=== PATIENT | male | born 1960 | race Asian ===

== ENCOUNTER 2017-03-12 12:37 | Day surgery (SDC) | payer OTHER ==
[~2017-03-12 12:37] MED LIST: POVIDONE-IODINE 5% OPHTH SOLN 600 GTTS/BOT SOLN.DROP ONE
[2017-03-12] MEDS ORDERED: SODIUM CHLORIDE 0.9% 500 ML ONE (12:58)
[2017-03-12] MEDS ORDERED: IV START KIT ONE (12:58)
[2017-03-12] MEDS ORDERED: NEO/POLYMYX B SULF/DEXAMETH OP OINT 14 APPLIC/3.5 G TUBE OS ONE (13:00)
[2017-03-12] MEDS ORDERED: CHONDR SULF 4%/HYALURONATE 3% 0.5 ML SYRINGE IO ONE (13:00)
[2017-03-12] MEDS ORDERED: D5 1/2NS 500 ML IV SCH (13:00)
[2017-03-12] MEDS ORDERED: PHENYLEPHRINE HCL 10% 100 GTTS/5 ML BOT SOLN.DROP OS PRN (13:00)
[2017-03-12] MEDS ORDERED: EPINEPHRINE 0.5 MG in BALANCED SALT IRRIG SOLN NO.2 500 ML IO ONE (13:00)
[2017-03-12] MEDS ORDERED: PROPARACAINE HCL 0.5% 300 GTTS/BOT SOLN.DROP OS ONE (13:00)
[2017-03-12] MEDS ORDERED: LIDOCAINE 4% (PRES FREE) 1 ML, BALANCED SALT IRRIG SOLN COMB2 3 ML, EPINEPHRINE 1.25 MG IO ONE ×3 (13:00)
[2017-03-12] MEDS: FLURBIPROFEN SODIUM 0.03% 50 GTTS/2.5 ML BOT SOLN.DROP OS SCH ×2 (13:39→13:46)
[2017-03-12] MEDS: CYCLOPENTOLATE HCL 1% 40 GTTS/2 ML BOT SOLN.DROP OS SCH ×2 (13:39→13:45)
[2017-03-12] MEDS: PHENYLEPHRINE 2.5% OPHTH 40 GTTS/2 ML BOT SOLN.DROP OS SCH ×2 (13:40→13:45)
[2017-03-12] MEDS ORDERED: MIDAZOLAM HCL 1 MG/ML 2ML VIAL ONE (13:51)
--- NOTE | 2017-03-13 08:55 | OP ---
BRITTNEY RODRIGUEZ : 1960 [id number] DATE OF SURGERY: March 12, 2017 SURGEON: Miguelito Gutierrez M.D. PREOPERATIVE DIAGNOSIS: Cataract OS. POSTOPERATIVE DIAGNOSIS: Pseudophakia OS. PROCEDURE: CATARACT EXTRACTION AND INTRAOCULAR LENS IMPLANTATION OS. COMPLICATIONS: None. ANESTHESIA: Monitored anesthesia care. DESCRIPTION OF OPERATION: After proper informed consent and brief history and physical were performed, the patient was brought to the operating room and placed in the supine position on the operating room table. The patient was prepped and draped in the usual sterile fashion for cataract surgery. A Keratome blade was used to make a clear corneal incision. Non-preserved Lidocaine was injected into the anterior chamber. Viscoelastic was then injected into the anterior chamber. A tracy blade was used to make a paracentesis. A bent needle cystotome was used to begin a capsulorrhexis which was completed with the Utrata forceps. Balanced salt solution (BSS) on a cannula was used to hydrodissect and hydrodelineate the lens, nucleus and cortex. The lens nucleus was removed using the phacoemulsification hand piece. The lens cortex was removed using the I/A handpiece. Viscoelastic was injected into the capsular bag and intraocular lens was injected into the capsular bag. Viscoelastic was removed from the anterior chamber. Balanced salt solution (BSS) was used to rehydrate and re-inflate the anterior chamber. The patient tolerated this procedure well without complication. cc: Miguelito Gutierrez M.D.
== END 2017-03-12 15:28 | disposition home or self-care (01) ==
LOC: SDC 12:37
PROVIDERS: ATTEND Ophthalmology
PROC: 08RK3JZ Replacement of Left Lens with Synthetic Substitute, Percutaneous Approach (ICD-10-PCS; principal; 2017-03-12)
DX: H25.12 Age-related nuclear cataract, left eye (principal); E11.3593 Type 2 diabetes mellitus with proliferative diabetic retinopathy without macular edema, bilateral; Z79.4 Long term (current) use of insulin; Z79.899 Other long term (current) drug therapy